=== PATIENT | male | born 1960 | race Caucasian/White ===

== ENCOUNTER 2024-02-05 18:51 | Inpatient (IN) | payer OTHER ==
[~2024-02-05] VITALS: Ht 185.4 cm; Wt 104.3 kg
[2024-02-05 19:22] VITALS: BP 155/106; PULSE 107; RESP 18; TEMP 98.7
[2024-02-05 20:29] LABS: ACETAMINOPHEN < 0.5 ug/ml (10-30); ALCOHOL, BLOOD 275 mg/dL (<10); SALICYLATE < 2.8 mg/dL (2.8-20.0)
[2024-02-05 21:28] LABS: BASOPHILS # (AUTO) 0.1 K/uL (0.00-0.22); BASOPHILS % (AUTO) 0.6 % (0.0-2.0); EOSINOPHILS # (AUTO) 0.1 K/uL (0-0.4); EOSINOPHILS % (AUTO) 1.3 % (0.0-4.0); HEMATOCRIT 46.1 % (36-52); HEMOGLOBIN 15.5 g/dL (12.0-18.0); LYMPHOCYTES # (AUTO) 3.9 K/uL (2.0-11.5); LYMPHOCYTES % (AUTO) 42.5 % (20.5-51.1); MEAN CORPUSCULAR HEMOGLOBIN 30 pg (27-31); MEAN CORPUSCULAR HGB CONC 34 g/dL (33-37); MEAN CORPUSCULAR VOLUME 88.5 fL (80-94); MONOCYTES # (AUTO) 0.6 K/uL (0.8-1.0); MONOCYTES % (AUTO) 6.1 % (1.7-9.3); NEUTROPHILS # (AUTO) 4.5 K/uL (1.8-7.7); NEUTROPHILS % (AUTO) 49.5 % (42.2-75.2); PLATELET COUNT (AUTO) 357 K/uL (140-450); RED BLOOD CELL COUNT(AUTO) 5.21 MIL/uL (4.20-6.10); WHITE BLOOD COUNT (AUTO) 9.2 K/uL (4.8-10.8)
[2024-02-05 22:01] LABS: ANION GAP 17.1 (8-16); CALCIUM 8.8 mg/dL (8.5-10.1); CARBON DIOXIDE 26.3 mmol/L (21-32); POTASSIUM 3.4 mmol/L (3.5-5.1)
[2024-02-06] MEDS: diphenhydrAMINE 50 MG/ML VIAL IM ONE (00:17)
[2024-02-06] MEDS: HALOPERIDOL IM 5 MG/ML VIAL IM ONE (00:17)
[2024-02-06] MEDS: LORazepam 2 MG/ML VIAL IM ONE (00:18)
[2024-02-06] MEDS: MULTIVITAMIN-12 10 ML, FOLIC ACID 1 MG in NACL 0.9% 1,000 ML IV SCH (10:30)
[2024-02-06] MEDS: THIAMINE 200 MG/2 ML VIAL IM SCH (10:46)
[2024-02-06] MEDS: MAG SULF 2000 MG/WATER PREMIX 50 ML IV SCH (10:50)
[2024-02-06 16:08] VITALS: PULSE 87; RESP 18; O2SAT 97
[2024-02-06 20:00] VITALS: BP 118/51; PULSE 66; PULSE 89; RESP 18; TEMP 97.2; O2SAT 94
[2024-02-07 04:00] VITALS: BP 134/58; PULSE 99; RESP 17; TEMP 98.6; O2SAT 93
[2024-02-07 08:00] VITALS: BP 134/58; PULSE 66; PULSE 99; RESP 17; RESP 18; TEMP 98.6; O2SAT 93
[2024-02-07] MEDS: HALOPERIDOL IM 5 MG/ML VIAL IM PRN (09:10)
[2024-02-07] MEDS: LORazepam 2 MG/ML VIAL IM PRN (09:10)
[2024-02-07] MEDS: HYDROcodone/APAP 5/325 MG 1 TAB TAB PO PRN (16:59)
[2024-02-07 20:00] VITALS: PULSE 60; RESP 18
[2024-02-08 05:58] VITALS: BP 131/72; PULSE 96; RESP 20; TEMP 96.7; O2SAT 97
[2024-02-08 08:00] VITALS: PULSE 65; RESP 18
[2024-02-08 12:00] VITALS: BP 128/79; PULSE 85; RESP 18; TEMP 98.3; O2SAT 99
[2024-02-08 19:55] LABS: BILIRUBIN,URINE NEGATIVE (NEGATIVE); BLOOD, URINE NEGATIVE (NEGATIVE); COLOR,URINE YELLOW (YELLOW); LEUKOCYTE ESTERASE ,URINE NEGATIVE (NEGATIVE); NITRITE, URINE POSITIVE (NEGATIVE); PROTEIN,URINE 1+ (NEGATIVE); UGLUCOSE NEGATIVE (NEGATIVE); UROBILINOGEN,URINE 0.2 EU/dL (0.2 - 1)
[2024-02-08 19:56] LABS: APPEARANCE,URINE SLIGHTLY CLOUDY (CLEAR)
[2024-02-08 19:59] LABS: BACTERIA,URINE 2+ /HPF (None Seen); MUCUS,URINE None Seen /LPF (None Seen); RBC,URINE 0-5 /HPF (0-5); SQUAMOUS EPITHELIAL CELL,UR 0-3 (FEW) /LPF (0-3 (FEW)); WBC,URINE 0-5 /HPF (0-5)
[2024-02-08 20:03] VITALS: BP 141/65; PULSE 77; RESP 18; TEMP 97.3; O2SAT 96
[2024-02-08 20:05] LABS: TRIPLE PHOSPHATE CRYSTAL,UR 0-10 /HPF (None Seen)
[2024-02-08 20:06] VITALS: PULSE 77; RESP 18
[2024-02-08 20:07] LABS: BARBITURATE, URINE NEGATIVE ng/ml (NEG <=200)
[2024-02-08 20:08] LABS: AMPHETAMINE, URINE POSITIVE ng/ml (NEG <=1000); BENZODIAZEPINE, URINE POSITIVE ng/mL (NEG <=200); CANNABINOID, URINE POSITIVE ng/mL (NEG <=50); COCAINE, URINE NEGATIVE ng/mL (NEG <=300); OPIATE, URINE POSITIVE ng/mL (NEG <=2000); PHENCYCLIDINE SCREEN,URINE NEGATIVE ng/mL (NEG <=25)
[2024-02-09] VITALS (7 sets, daily range): BP systolic 111–148; BP diastolic 76–80; PULSE 81–88; RESP 18–20; TEMP 96.9–97.7; O2SAT 97–99
== END 2024-02-09 23:41 | DRG 917 ==
LOC: MED 18:51 → MTU 02-06 10:40
PROVIDERS: ADMIT Hospitalist; ATTEND Hospitalist
DX: T51.0X1A Toxic effect of ethanol, accidental (unintentional), initial encounter (principal); G92.9 Unspecified toxic encephalopathy; F10.129 Alcohol abuse with intoxication, unspecified; Y90.8 Blood alcohol level of 240 mg/100 ml or more; F43.10 Post-traumatic stress disorder, unspecified; F41.8 Other specified anxiety disorders; F20.9 Schizophrenia, unspecified; F32.A Depression, unspecified; Z88.8 Allergy status to other drugs, medicaments and biological substances; Y92.9 Unspecified place or not applicable
CPT/HCPCS: 36415; 80048; 80305; 81001; 84484; 85025; 96372; 99285; A9153; G0480; G0482; J1200; J1630; J2060; J3490; J7030